=== PATIENT | female | born 1990 | race Two or more races ===

== ENCOUNTER 2016-12-08 15:20 | Emergency (ER) | payer OTHER ==
[~2016-12-08] VITALS: Ht 160 cm; Wt 72.6 kg
[2016-12-08 15:35] VITALS: BP 126/91
[2016-12-08] MEDS ORDERED: Bacitracin Oint UD TOPIC ONE (15:45)
--- NOTE | 2016-12-08 15:45 | Emergency Room Report ---
History of Present Illness General Chief Complaint: General Complaint Source: Patient Present Illness HPI Patient was working in the garden. She felt a little bit of pain her middle finger and after that some tingling and swelling of her hand and forearm. This happened approximately an hour ago. It has started to get better at this time. Her tetanus is up-to-date. She is right-handed. There were spider webs in the pots she was cleaning. Prior abrasion forearm. They applied benton to the hand. No fever, dyspnea, NVD, other weakness, MEJIA, dysuria. Not . No smoking, no BCP. Allergies: Coded Allergies: No Known Allergies (Unverified , 12/08/16) Patient History Past Medical History: see triage record Social History: Denies: alcohol use, drug use, smoking Social History Narrative at home Last Menstrual Period: 12/06/2016 Reviewed Nursing Documentation: PMH: Agreed, PSxH: Agreed Nursing Documentation-PMH Past Medical History: No Stated History Review of Systems All Other Systems: negative except mentioned in HPI Physical Exam Vital Signs Date Time Temp Pulse Resp B/P Pulse Ox O2 Delivery O2 Flow Rate FiO2 12/08/16 15:24 98.4 97 16 126/91 98 Room Air Sp02 EP Interpretation: reviewed, normal General Appearance: well appearing, no apparent distress, GCS 15 Head: normocephalic, atraumatic Eyes: bilateral eye PERRL, bilateral eye normal inspection ENT: hearing grossly normal, normal voice, moist mucus membranes Neck: full range of motion, supple Respiratory: no respiratory distress, speaking full sentences Cardiovascular #1: regular rate, rhythm, no edema, other - good capillary fill Cardiovascular #2: 2+ radial (R) Gastrointestinal: normal inspection Musculoskeletal: gait/station normal, normal range of motion, other - slight tenderness ulnar side of middle finger nail area Neurologic: alert, oriented x3, motor strength/tone normal, sensory intact, normal gait, speech normal Psychiatric: mood/affect normal Skin: other - see M/S, abrasions - R forearm Medical Decision Making Diagnostic Impression: Primary Impression: Insect bite Qualified Codes: W57.XXXA - Bitten or stung by nonvenomous insect and other nonvenomous arthropods, initial encounter ER Course Patient presents with pain in her right middle finger after cleaning areas for spiderwebs. There was numbness in the hand. She has no risk factors for stroke. The symptoms are starting to get better at this time. There is an area of local inflammation of the middle finger. The diagnosis most likely insect bite with a local reaction. The patient will be treated with Benadryl and also local topical antibiotic ointment. Patient stable for outpatient observation and treatment. Last Vital Signs Date Time Temp Pulse Resp B/P Pulse Ox O2 Delivery O2 Flow Rate FiO2 12/08/16 15:53 98.4 97 16 126/91 98 Room Air Status: improved Disposition: HOME, SELF-CARE Condition: Improved Scripts Bacitracin (Bacitracin) 28.4 Gm Oint...g. 1 APPLIC TOPIC BID, #10 GM Prov: Rickey Ibarra M.D. 12/08/16 Diphenhydramine Hcl* (BENADRYL*) 25 Mg Capsule 25 MG ORAL Q6H Y for Itching, #14 CAP Prov: Rickey Ibarra M.D. 12/08/16 Rickey Ibarra M.D. Dec 08, 2016 15:45
[2016-12-08] MEDS ORDERED: BENADRYL25 MG ORAL (15:49)
[2016-12-08] MEDS ORDERED: BACITRACIN15 GM TOPIC (15:49)
[2016-12-08 15:53] VITALS: BP 126/91
== END 2016-12-08 15:53 | disposition home or self-care (01) ==
LOC: EMR 15:49
DX: S60.462A Insect bite (nonvenomous) of right middle finger, initial encounter (principal); W57.XXXA Bitten or stung by nonvenomous insect and other nonvenomous arthropods, initial encounter; Y93.H2 Activity, gardening and landscaping; Y99.9 Unspecified external cause status; S50.811A Abrasion of right forearm, initial encounter
CPT/HCPCS: 99284